=== PATIENT | female | born 1975 | race Caucasian/White ===

== ENCOUNTER 2016-09-02 16:15 | Emergency (ER) | payer MEDICARE | END 2016-09-02 18:25 | disposition home or self-care (01) | LOC: ER 16:15 | DX: M79.602 Pain in left arm (principal); Z98.890 Other specified postprocedural states; Z86.19 Personal history of other infectious and parasitic diseases; J44.9 Chronic obstructive pulmonary disease, unspecified; F17.210 Nicotine dependence, cigarettes, uncomplicated; Z88.0 Allergy status to penicillin; Z79.899 Other long term (current) drug therapy | CPT/HCPCS: 99070; 99283 ==

== ENCOUNTER 2016-09-30 12:22 | Emergency (ER) | payer MEDICARE | END 2016-09-30 13:16 | disposition home or self-care (01) | LOC: ER 12:22 | DX: R10.9 Unspecified abdominal pain (principal); G89.18 Other acute postprocedural pain; Z98.51 Tubal ligation status; F41.9 Anxiety disorder, unspecified; Z86.19 Personal history of other infectious and parasitic diseases; Z79.899 Other long term (current) drug therapy; Z88.0 Allergy status to penicillin | CPT/HCPCS: 99070; 99282 ==

== ENCOUNTER 2016-11-18 16:56 | Emergency (ER) | payer MEDICARE | END 2016-11-18 19:33 | disposition home or self-care (01) | LOC: ER 16:56 | DX: Z53.21 Procedure and treatment not carried out due to patient leaving prior to being seen by health care provider (principal) | CPT/HCPCS: 73030; 73060; 99211 ==

== ENCOUNTER 2016-12-31 14:39 | Emergency (ER) | payer MEDICARE ==
[2016-12-31 16:49] LABS: URINE BILIRUBIN NEGATIVE (NEGATIVE); URINE BLOOD 3+ (NEGATIVE); URINE GLUCOSE (UA) NORMAL (NORMAL); URINE KETONE NEGATIVE (NEGATIVE); URINE LEUKOCYTE ESTERASE TRACE (NEGATIVE); URINE NITRATE NEGATIVE (NEGATIVE); URINE PROTEIN NEGATIVE (NEGATIVE); URINE RBC 0-5 /[HPF] (0-2); URINE SQUAMOUS EPITHELIAL CELL 0-10 /[HPF] (NONE SEEN); URINE WBC 0-5 /[HPF] (0-5); UROBILINOGEN NORMAL mg/dL (<1.0)
== END 2016-12-31 17:36 | disposition home or self-care (01) ==
LOC: ER 14:39
PROVIDERS: General Practice
DX: N20.0 Calculus of kidney (principal); R31.9 Hematuria, unspecified; R10.9 Unspecified abdominal pain; E66.9 Obesity, unspecified; F17.210 Nicotine dependence, cigarettes, uncomplicated; Z79.899 Other long term (current) drug therapy; Z88.0 Allergy status to penicillin
CPT/HCPCS: 74150; 81001; 96372; 99070; 99284-25